=== PATIENT | male | born 1950 | race Two or more races ===

== ENCOUNTER 2024-03-10 12:58 | Emergency (ER) | payer OTHER ==
[~2024-03-10] VITALS: Ht 175.3 cm; Wt 96.3 kg
--- NOTE | 2024-03-10 13:39 | ED.PDOC ---
SOB-HPI HPI Comments 73 y.o male with PMHx of HTN and hyperlipidemia, presents to the ED for a chief complaint of SOB associated with phlegm that presented 4-5 days ago. Patient reports using inhalers and nebulizer at home but has had no relief and states some chest wall tenderness only upon deep inspiration. Patient denies any home oxygen, presents to the ED with SPO2 of 78% RA and was placed on 6 liter NC with saturation now reading 96%. Patient denies any fever, chills, chest pain, nausea, vomiting, back pain. Chief Complaint: Shortness of Breath Time Seen by MD: 13:18 Reviewed notes: Nurses Notes, Medications, Allergies Information Source: Patient Mode of Arrival: Ambulatory Severity: Moderate Timing: Days (4-5) Duration: Since onset Context: At Rest History of: None Modifying Factors: Nothing Associated Signs and Symptoms: Cough If cough with SOB: Clear Past Medical History PAST MEDICAL HISTORY: High Lipids, HTN Family History Family History: Reviewed,noncontributory to illness Social History Smoker: Non-Smoker Alcohol: Occasionally Drugs: Denies Drug Use Lives In: Home Constitutional: denies: chills, diaphoresis, fatigue, fever, malaise, sweats, weakness, others EENTM: denies: blurred vision, double vision, ear bleeding, ear discharge, ear drainage, ear pain, ear ringing, eye pain, eye redness, hearing loss, mouth pain, mouth swelling, nasal discharge, nose bleeding, nose congestion, nose pain, photophobia, tearing, throat pain, throat swelling, voice changes, others Respiratory: reports: hemoptysis, SOB at rest, shortness of breath, SOB with excertion; denies: cough, orthopnea, stridor, wheezing, others Cardiovascular: denies: chest pain, dizzy spells, diaphoresis, Dyspnea on exertion, edema, irregular heart beat, left arm pain, lightheadedness, palpitations, PND, syncope, others Gastrointestinal: denies: abdomen distended, abdominal pain, blood streaked bowels, constipated, diarrhea, dysphagia, difficulty swallowing, hematemesis, melena, nausea, poor appetite, poor fluid intake, rectal bleeding, rectal pain, vomiting, others Genitourinary: denies: burning, dysuria, flank pain, frequency, hematuria, incontinence, penile discharge, penile sore, pain, testicle pain, testicle swelling, urgency, others Neurological: denies: dizziness, fainting, headache, left sided numbness, left sided weakness, numbness, paresthesia, pre-existing deficit, right sided numbness, right sided weakness, seizure, speech problems, tingling, tremors, weakness, others Musculoskeletal: denies: back pain, gout, joint pain, joint swelling, muscle pain, muscle stiffness, neck pain, others Integumetry: denies: bruises, change in color, change in hair/nails, dryness, laceration, lesions, lumps, rash, wounds, others Allergic/Immunocompromised: denies: Difficulty Healing, Frequent Infections, Hives, Itching, others Hematologic/Lymphatic: denies: anemia, blood clots, easy bleeding, easy bruising, swollen glands, others Endocrine: denies: excessive hunger, excessive sweating, excessive thirst, excessive urination, flushing, intolerance to cold, intolerance to heat, unexplained weight gain, unexplained weight loss, others Psychiatric: denies: anxiety, bipolar disorder, depression, hopeless, panic disorder, schizophrenia, sleepless, suicidal, others All Other Systems: Reviewed and Negative Physical Exam General Appearance: No Apparent Distress, Normal HEENT: Normal ENT Inspection, Pharynx Normal, TMs Normal Neck: Full Range of Motion, Non-Tender, Normal, Normal Inspection Respiratory: Chest Non-Tender, Lungs Clear, No Accessory Muscle Use, No Respiratory Distress, Normal Breath Sounds Cardiovascular: Tachycardia Breast Exam: Deferred Gastrointestinal: No Organomegaly, Non Tender, No Pulsatile Mass, Normal Bowel Sounds, Soft Genitalia: Deferred Pelvic: Deferred Rectal: Deferred Extremities: No calf tenderness, Normal capillary refill, Normal inspection, Normal range of motion, Non-tender, No pedal edema Musculoskeletal : Apperance: Normal Neurologic: Alert, 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 Was a procedure done?: No Differential Dx Differential Diagnosis: Bronchitis, Pneumonia, Respiratory Distress, URI X-Ray, Labs, Meds, VS Vital Signs Date Time Temp Pulse Resp B/P (MAP) Pulse Ox O2 Delivery O2 Flow Rate FiO2 03/10/24 13:59 22 94 Nasal Cannula* 6 44 03/10/24 13:10 97.5 120 17 130/77 (94) 93 03/10/24 13:10 17 93 Nasal Cannula 6.0 Lab Test 03/10/24 14:56 03/10/24 13:50 Range/Units Troponin I High Sensitivity 7 6 </=54 ng/L White Blood Count 10.1 4.4-10.8 10^3/uL Red Blood Count 5.02 4.5-5.90 10^6/uL Hemoglobin 16.4 13.5-17.5 g/dL Hematocrit 48.6 41.0-53.0 % Mean Corpuscular Volume 96.9 80.0-100.0 fL Mean Corpuscular Hemoglobin 32.7 H 28.0-32.0 pg Mean Corpuscular Hemoglobin Concent 33.8 32.0-36.0 g/dL Red Cell Distribution Width 12.9 11.8-14.3 % Platelet Count 328 140-450 10^3/uL Mean Platelet Volume 8.6 6.9-10.8 fL Neutrophils (%) (Auto) 61.4 37.0-80.0 % Lymphocytes (%) (Auto) 22.5 10.0-50.0 % Monocytes (%) (Auto) 7.3 0.0-12.0 % Eosinophils (%) (Auto) 7.8 H 0.0-7.0 % Basophils (%) (Auto) 1.0 0.0-2.0 % Neutrophils # (Auto) 6.2 1.6-8.6 10 ^3/uL Lymphocytes # (Auto) 2.3 0.4-5.4 10 ^3/uL Monocytes # (Auto) 0.7 0-1.3 10 ^3/uL Eosinophils # (Auto) 0.8 0-0.8 10 ^3/uL Basophils # (Auto) 0.1 0-0.2 10 ^3/uL Nucleated Red Blood Cells 0.1 % Sodium Level 137 136-145 mmol/L Potassium Level 4.8 3.5-5.1 mmol/L Chloride Level 104 98-107 mmol/L Carbon Dioxide Level 22 20-31 mmol/L Anion Gap 11 5-15 Blood Urea Nitrogen 20 9-23 mg/dL Creatinine 1.16 0.700-1.30 mg/dL Glomerular Filtration Rate Calc 66 >90 mL/min BUN/Creatinine Ratio 17.2 10.0-20.0 Serum Glucose 108 H 74-106 mg/dL Calcium Level 9.6 8.7-10.4 mg/dL Total Bilirubin 0.4 0.2-1.0 mg/dL Aspartate Amino Transferase (AST) 34 13-40 U/L Alanine Aminotransferase (ALT) 23 7-40 U/L Alkaline Phosphatase 111 46-116 U/L B-Type Natriuretic Peptide 15.72 0-100 pg/mL Total Protein 7.7 5.7-8.2 g/dL Albumin 4.7 3.2-4.8 g/dL Current Medications Medications (Trade) Dose Ordered Sig/Alfonzo Route Start Time Stop Time Status Last Admin Albuterol (Ventolin Medneb) 2.5 mg ONCE ONCE [facility] 03/10/24 13:45 03/10/24 13:46 DC 03/10/24 13:56 Ipratropium Hartline (Atrovent Medneb) 0.5 mg ONCE ONCE NEB 03/10/24 13:45 03/10/24 13:46 DC 03/10/24 13:55 Levalbuterol HCl (Xopenex Medneb) 1.25 mg ONCE ONCE NEB 03/10/24 17:00 03/10/24 17:04 DC 03/10/24 17:43 X-Ray, Labs, Meds, VS Comment Imaging: X-rays and CT scans were reviewed and interpreted by this provider, imaging shows no fractures and no pathological disease. Pending radiology review. Laboratory: Labs reviewed and interpreted by this provider. No significant abnormalities noted. Patient has prior medical visits reviewed. Med reconciliation performed Vital signs reviewed Time of 1ST Reevaluation: 13:35 Reevaluation 1ST: Unchanged Patient Education/Counseling: Diagnosis, Treatment, Prognosis, Need For Follow Up (Follow up with the PCP in the next 2-4 days. Return to the emergency department in the next 24 hours if symptoms worsen.) Family Education/Counseling: No Family Present Departure 1 Departure Time of Disposition: 18:02 Impression: Primary Impression: Asthma exacerbation Disposition: HOME / SELF CARE / HOMELESS Condition: Fair e-Prescriptions Azithromycin (Zithromax Z-Ankush) 250 Mg Tab 250 MG PO DAILY for 5 Days, #6 TAB Prov: KATHY CERVANTES 03/10/24 Promethazine-Dm (Promethazine Dm 6.25-15 mg/5Ml) 1 Cordelia Cordelia 5 ML PO TID PRN, #240 ML Prov: KATHY CERVANTES 03/10/24 Prednisone (Prednisone) 20 Mg Tab 20 MG PO DAILY for 5 Days, #5 MG Prov: KATHY CERVANTES 03/10/24 Discharged With: Self Critical Care Note Critical Care Time?: No Stability Stability form required: No I personally scribed for KATHY CERVANTES ([facility]) on 03/10/24 at 13:39. Electronically submitted by Savita Mathias ([facility]). KATHY CERVANTES Mar 10, 2024 13:39
[2024-03-10] MEDS: IPRATROPIUM BROM 0.5 MG/2.5ML INH SOL NEB ONE (13:55)
[2024-03-10] MEDS: ALBUTEROL SULF 2.5 MG/0.5ML(0.5%) NEB SOLN NEB ONE (13:56)
[2024-03-10 13:59] LABS: Basophils # (auto) 0.1 10 ^3/uL (0-0.2); Eosinophils # (auto) 0.8 10 ^3/uL (0-0.8); Eosinophils % (auto) 7.8 % (0.0-7.0); Hematocrit 48.6 % (41.0-53.0); Hemoglobin 16.4 g/dL (13.5-17.5); Lymphocytes # (auto) 2.3 10 ^3/uL (0.4-5.4); Lymphocytes % (auto) 22.5 % (10.0-50.0); Mean Corpuscular Hemoglobin 32.7 pg (28.0-32.0); Mean Corpuscular Hgb Conc. 33.8 g/dL (32.0-36.0); Mean Corpuscular Volume 96.9 fL (80.0-100.0); Monocytes # (auto) 0.7 10 ^3/uL (0-1.3); Monocytes % (auto) 7.3 % (0.0-12.0); Neutrophils # (auto) 6.2 10 ^3/uL (1.6-8.6); Neutrophils % (auto) 61.4 % (37.0-80.0); Nucleated Red Blood Cells % 0.1 %; Platelet Count (auto) 328 10^3/uL (140-450); Red Blood Cells 5.02 10^6/uL (4.5-5.90); Red Cell Distribution Width 12.9 % (11.8-14.3); White Blood Cell 10.1 10^3/uL (4.4-10.8)
--- NOTE | 2024-03-10 14:03 | DVH ---
CHEST RADIOGRAPH Indication: sob Technique: Single frontal view of the chest was obtained Comparison: None FINDINGS: Lines and Tubes: None Lungs: No focal consolidation. Pleura: No effusion. No pneumothorax. Cardiomediastinal contours: Unremarkable Bones: No acute osseous abnormality. IMPRESSION: No acute cardiopulmonary disease.
[2024-03-10 14:51] LABS: Alanine Aminotransferase 23 U/L (7-40); Albumin 4.7 g/dL (3.2-4.8); Alkaline Phosphatase 111 U/L (46-116); Anion Gap 11 (5-15); Aspartate Aminotransferase 34 U/L (13-40); BUN/Creatinine Ratio 17.2 (10.0-20.0); Blood Urea Nitrogen 20 mg/dL (9-23); Calcium 9.6 mg/dL (8.7-10.4); Carbon Dioxide 22 mmol/L (20-31); Chloride 104 mmol/L (98-107); Potassium 4.8 mmol/L (3.5-5.1); Sodium 137 mmol/L (136-145)
[2024-03-10 14:52] LABS: Bilirubin, Total 0.4 mg/dL (0.2-1.0); Glucose 108 mg/dL (74-106); Total Protein 7.7 g/dL (5.7-8.2)
[2024-03-10] MEDS: LEVALBUTEROL HCL 1.25 MG/3 ML NEB NEB ONE (17:43)
[2024-03-10] MEDS ORDERED: PROM1SOL4 PO (18:05)
[2024-03-10] MEDS ORDERED: PRED20TA2 PO (18:05)
[2024-03-10] MEDS ORDERED: AZITTAB PO (18:05)
[2024-03-10] MEDS: methylPREDNISolone SOD SUCC 125 MG/2 ML VL IM ONE (18:26)
[2024-03-10 18:43] VITALS: PULSE 116; RESP 20; O2SAT 88
[2024-03-10 19:58] LABS: Base Excess -1.8 mmol/L (-2.0-3.0)
[2024-03-10] MEDS: cefTRIAXone SOD 1,000 MG VL IM ONE (21:21)
[2024-03-10 22:29] VITALS: BP 161/93; PULSE 116; RESP 20; TEMP 97.5; O2SAT 89
[2024-03-10] MEDS: AZITHROMYCIN 250 MG TAB PO ONE (22:33)
[2024-03-10] MEDS: methylPREDNISolone SOD SUCC 125 MG/2 ML VL IV ONE (22:39)
[2024-03-11] VITALS (7 sets, daily range): BP systolic 127; BP diastolic 73; PULSE 95–111; RESP 16–20; TEMP 97.5; O2SAT 95–100
[2024-03-11] MEDS: IOHEXOL 350 MG/ML 100ML IJ ONE (01:24)
[2024-03-11 01:25] LABS: Base Excess -2.4 mmol/L (-2.0-3.0)
[2024-03-11] MEDS: ALBUTEROL SULF 2.5 MG/0.5ML(0.5%) NEB SOLN NEB SCH (02:26)
[2024-03-11] MEDS: IPRATROPIUM BROM 0.5 MG/2.5ML INH SOL NEB SCH (02:26)
[2024-03-11] MEDS ORDERED: ALBUAER3 IN (02:29)
[2024-03-11] MEDS ORDERED: METH4PAK PO (02:29)
[2024-03-11] MEDS ORDERED: BUDE1AER16 IN (02:29)
[2024-03-11] MEDS ORDERED: ALBU1.258 IN (02:29)
--- NOTE | 2024-03-11 03:10 | DVH ---
Examination: CTACH CLINICAL INDICATION: elevated d dimer COMPARISON: None. CONTRAST USED: Intravenous. TECHNIQUE: Axial images were obtained through the thorax with contrast. Appropriate 3D, MPR, CMPR, thick and thin MIP and VRT view were obtained from multiple phase reconstructions. CT scan done accor ding to ALARA (As Low As Reasonably Achievable). Multiplanar reconstructions were obtained. FINDINGS: Visualized Neck: The thyroid and the rest of the neck structures are unremarkable. Mediastinum and Lungs: There are extensive centrilobular emphysematous changes in lungs. No lung infi ltrates. No mass or nodules. No pleural effusion is seen. There is a small sized hiatal hernia. There are enlarged mediastinal lymph nodes, measuring up to 12 mm. Central pulmonary arteries appear unremarkable. The right and left main pulmonary arteries appear no rmal. No evidence of filling defect is seen. 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 Atherosclerotic calcification is seen in the aorta and the coronary vessels. No aneurysmal dilatation of the aorta is seen. The aortic caliber is unremarkable. The pulmonary javad emigdio are unremarkable. The cardiac size is unremarkable. No pericardial effusion is seen. Osseous structures: Degenerative changes are visualized in the spine. Visualized Upper Abdomen: Gallbladder: There are multiple gallbladder calculi. No gallbladder wall thickening. Adrenal glands: Unremarkable. Liver: Unremarkable. Spleen: Visualized unremarkable. Pancreas: Unremarkable. Kidneys: Visualized unremarkable. IMPRESSION: 1. No evidence of acute or chronic pulmonary thromboembolism. 2. Extensive emphysematous changes in lungs. 3. Mediastinal adenopathy. 4. No evidence of aortic dissection is seen. Electronically Signed 03/11/2024 03:09 Rachana Headley
[2024-03-11] MEDS: methylPREDNISolone SOD SUCC 125 MG/2 ML VL IV SCH (06:26)
[2024-03-11 08:13] LABS: Chloride 104 mmol/L (98-107); Potassium 4.2 mmol/L (3.5-5.1); Sodium 138 mmol/L (136-145)
[2024-03-11 08:14] LABS: Anion Gap 12 (5-15); Carbon Dioxide 22 mmol/L (20-31)
[2024-03-11 08:18] LABS: Basophils # (auto) 0 10 ^3/uL (0-0.2); Basophils % (auto) 0.2 % (0.0-2.0); Eosinophils # (auto) 0 10 ^3/uL (0-0.8); Eosinophils % (auto) 0.1 % (0.0-7.0); Hematocrit 48.8 % (41.0-53.0); Hemoglobin 16.3 g/dL (13.5-17.5); Lymphocytes # (auto) 2.1 10 ^3/uL (0.4-5.4); Lymphocytes % (auto) 17.2 % (10.0-50.0); Mean Corpuscular Hemoglobin 32.7 pg (28.0-32.0); Mean Corpuscular Hgb Conc. 33.4 g/dL (32.0-36.0); Mean Corpuscular Volume 97.9 fL (80.0-100.0); Monocytes # (auto) 0.1 10 ^3/uL (0-1.3); Monocytes % (auto) 0.8 % (0.0-12.0); Neutrophils # (auto) 9.8 10 ^3/uL (1.6-8.6); Neutrophils % (auto) 81.7 % (37.0-80.0); Nucleated Red Blood Cells % 0.2 %; Platelet Count (auto) 356 10^3/uL (140-450); Red Blood Cells 4.98 10^6/uL (4.5-5.90); Red Cell Distribution Width 12.4 % (11.8-14.3)
[2024-03-11 08:19] LABS: BUN/Creatinine Ratio 14.7 (10.0-20.0); Blood Urea Nitrogen 21 mg/dL (9-23)
[2024-03-11 08:37] LABS: Glucose 163 mg/dL (74-106)
--- NOTE | 2024-03-11 19:02 | DVHINCON2 ---
DATE OF CONSULTATION: 03/11/2024 CHIEF COMPLAINT: Coming in for shortness of breath and wheezing. HISTORY OF PRESENT ILLNESS: This is a 73-year-old male with significant past medical history for nicotine dependence 60 years' of tobacco use of about a pack a day, essential hypertension, and hyperlipidemia; who presents with new onset of shortness of breath. The patient says it has been observed for about 4 to 5 days' ago. The patient is complaining of shortness of breath and wheezing. He has been using his nebulizer machine from his 's supply at home; and states that he was getting some relief, but not completely and decided to come in for evaluation. He does also have associated chest pain with deep inspirations. The patient says that he does have off-and-on a mild cough that has not changed, and he does have some thin clear phlegm at times. He denies any fevers or chills, any sweats, any sore throat or earaches, or any body aches. He does have chronic fatigue. Otherwise, denies any nausea or vomiting; any diarrhea or constipation, bloody or tarry stools; palpitations; dizziness; or urinary frequency or urgency; or burning sensation symptoms. PAST MEDICAL HISTORY: * Nicotine dependence. * Essential hypertension. * Hyperlipidemia. PAST SURGICAL HISTORY: He had bilateral hand carpal tunnel release surgery. SOCIAL HISTORY: Tobacco use of about a pack a day for about 60 years. No alcohol. No illicit drugs. MEDICATIONS: At home per medical reconciliation. MEDICATION ALLERGIES: No known drug allergies. REVIEW OF SYSTEMS: A 10-point review of system was covered with the patient and was negative with exception to what was present in history of present illness. PHYSICAL EXAMINATION: VITAL SIGNS: Temperature of 97.5, pulse rate of 120, respiratory rate of 18, blood pressure of 130/77, pulse ox about 100% on 4 L nasal cannula. GENERAL: Seems to be alert and oriented x4, not in acute distress male, sitting up in a chair, not using extra respiratory muscles of breathing. HEENT: Normocephalic and atraumatic. Extraocular muscles are intact. Pupils were equally round, react to light and accommodations. Mucous membranes look moist. CARDIOVASCULAR: S1, S2 positive. Regular rate and rhythm. No rubs, gallops, or murmurs. LUNGS: With diffuse expiratory wheezing. ABDOMEN: On examination, abdomen seems to be soft, nontender, and nondistended. Positive bowel sounds. No guarding or rebound. EXTREMITIES: Lower extremities, no lower extremity edema, clubbing, or cyanosis. NEUROLOGIC: No focal deficits. Cranial nerves testing II through XII overall seems to be intact. LABORATORY WORKUP: White count 10.1, H and H of 16.4 and 48.6, platelet count 328,000. There is no neutrophil shift. There is slight eosinophilia of 7.8%. Chemistry shows sodium 137, potassium 4.8, chloride 104, carbon dioxide 22, anion gap of 11. BUN of 20, creatinine of 1.16. Glucose of 108. Calcium 9.6. Total bili of 0.4, AST of 34, ALT of 23, alkaline phosphatase of 111. Troponin 6, repeat of 7. BNP of 15.72. D-dimer was also 0.67. Blood gas initially pH of 7.409, pCO2 of 36, pO2 of 47.5, pulse ox of 83.8%, this is on room air. Repeat blood gas showed a pH of 7.37 with a pCO2 of 39.5 with a pO2 of 93.1 with a pulse ox of 96.9%, this was on 4 L nasal cannula oxygen. IMAGING: To include a chest x-ray that shows no acute cardiopulmonary disease. CT angiogram of the chest shows no evidence of acute or chronic pulmonary thromboembolism or extensive emphysematous changes in the lung, mediastinal adenopathy, and no evidence of aortic dissection is seen. DIAGNOSES: * Hypoxia. * Acute chronic obstructive pulmonary disease exacerbation. * Mediastinal adenopathy. * Nicotine dependence. PLAN: The patient was kept in the Emergency Room overnight for continuous med neb treatments, IV steroids and IV antibiotics. The patient overall symptoms did improve and wheezing did dissipate. The patient is still, however, requiring 2 L nasal cannula, satting at about 95%. Imaging did not show any pneumonia and PE was ruled after having elevated D-dimer levels with a CT angiogram. The patient however was found to have extensive emphysema changes as well as the mediastinal adenopathy. The patient is a 58-year, 1 pack a day smoker at high risk for malignancy and seems to have underlying emphysema and likely underlying COPD, which is the cause of the patient's wheezing, shortness of breath, hypoxia, and current presentation. The patient has been ordered to receive 2 L nasal cannula oxygen and a home concentrator. The patient additionally will be given Symbicort 160/4.5 two puffs twice a day with albuterol handheld inhaler and rescue inhaler p.r.n. q. 4h. as needed for shortness of breath. The patient will be placed on a Z-DIONNE with Medrol Dosepak to go home with. The patient has also been ordered to have a nebulizer and a nebulizer machine, which the patient apparently refused. I know that the has a nebulizer machine at home, and that the patient has been using it this past few days prior to presenting here to the Emergency Room. The patient will be discharged in improved condition again with oxygen, inhalers, antibiotics and a steroid pack. The patient will be given instructions to follow up with his primary care provider and will be arranged for a followup within the next 5 to 7 days. The patient will be given a referral to Pulmonology to have spirometry testing and further testing for his mediastinal lymphadenopathy whether to have a repeat CT imagings in 6 to 8 weeks' or to possibly even have a biopsy completed, we will leave that towards the rehabilitation consultant's recommendations. The patient otherwise will also be arranged for home safety evaluation. Smoking cessation counseling was given to him, but further counseling will be required to be given by his primary care provider. The patient will be told to return to the Emergency Room in case of any worsening shortness of breath, any chest pain, fevers, chills, palpitations, dizziness, or any other concerning signs and/or symptoms. The patient's followups will be arranged by [facility] Case Management. Harpreet Hewitt MD LM/ADRIAN TID: [id number] RECEIPT: [id number] MTDJosh
[2024-03-11] MEDS ORDERED: cefTRIAXone 1GM/50ML D5W 50 ML IV SCH (20:00)
== END 2024-03-11 08:06 | disposition home or self-care (01) ==
LOC: ER 12:58
DX: J45.901 Unspecified asthma with (acute) exacerbation (principal); R09.02 Hypoxemia; E78.5 Hyperlipidemia, unspecified; I10 Essential (primary) hypertension; F17.210 Nicotine dependence, cigarettes, uncomplicated
CPT/HCPCS: 36415; 36600; 71045; 71275; 80048; 80053; 82805; 83880; 84484; 85025; 85379; 94640; 96372; 96374; 96376; 99285; J0696; J2919; J7030; Q9967